=== PATIENT | female | born 1950 | race Two or more races ===

== ENCOUNTER 2018-09-25 08:21 | Outpatient (CLI) | payer OTHER | END 2018-09-25 08:36 | disposition home or self-care (01) | LOC: LAB 08:21 | DX: D64.89 Other specified anemias (principal); N30.00 Acute cystitis without hematuria; E03.8 Other specified hypothyroidism; D68.8 Other specified coagulation defects; N72 Inflammatory disease of cervix uteri; R10.0 Acute abdomen ==

== ENCOUNTER 2018-09-25 09:45 | Outpatient (CLI) | payer OTHER | END 2018-09-25 09:50 | disposition home or self-care (01) | LOC: MAMO-SONO 09:45 | DX: Z12.31 Encounter for screening mammogram for malignant neoplasm of breast (principal); Z87.898 Personal history of other specified conditions; N60.11 Diffuse cystic mastopathy of right breast; N60.12 Diffuse cystic mastopathy of left breast ==

== ENCOUNTER → 2018-09-25 | Outpatient (CLI) | payer OTHER | END | disposition home or self-care (01) | LOC: NUCLEAR 10:00 | DX: M89.8X0 Other specified disorders of bone, multiple sites (principal); M81.0 Age-related osteoporosis without current pathological fracture ==

== ENCOUNTER 2022-11-27 13:10 | Outpatient (CLI) | payer OTHER | END 2022-11-27 13:12 | disposition home or self-care (01) | LOC: SONOGRAMA 13:10 | PROVIDERS: ATTEND Surgery | DX: R22.2 Localized swelling, mass and lump, trunk (principal) ==

== ENCOUNTER 2022-12-17 06:00 | Day surgery (SDC) | payer OTHER ==
[~2022-12-17] VITALS: Ht 162.6 cm; Wt 63.5 kg
[~2022-12-17 06:00] MED LIST: LOSARTAN-HCTZ1 EAC1 PO
== END 2022-12-17 13:35 | disposition home or self-care (01) ==
LOC: CIR.AMB 06:00
PROVIDERS: ATTEND Surgery
DX: D17.1 Benign lipomatous neoplasm of skin and subcutaneous tissue of trunk (principal); R22.2 Localized swelling, mass and lump, trunk; Z20.822 Contact with and (suspected) exposure to COVID-19; I10 Essential (primary) hypertension